=== PATIENT | female | born 1990 | race African-American/Black ===

== ENCOUNTER 2018-12-18 22:25 | Emergency (ER) | payer OTHER ==
[~2018-12-18] VITALS: Ht 175.3 cm; Wt 114.0 kg
[2018-12-18 23:25] VITALS: BP 117/72
== END 2018-12-19 00:52 | disposition left against medical advice (07) ==
LOC: ER 22:25
DX: Z53.21 Procedure and treatment not carried out due to patient leaving prior to being seen by health care provider (principal)